=== PATIENT | male | born 1945 | race Caucasian/White ===

== ENCOUNTER → 2020-05-01 10:23 | Outpatient (BNVA) | payer MEDICARE, SELFPAY | PROVIDERS: Visit Provider Family Medicine | DX: E11.9 Type 2 diabetes mellitus without complications (principal); E11.620 Type 2 diabetes mellitus with diabetic dermatitis; G62.9 Polyneuropathy, unspecified; I10 Essential (primary) hypertension; Z83.3 Family history of diabetes mellitus; Q24.9 Congenital malformation of heart, unspecified | CPT/HCPCS: 36416; 80053; 80061; 82962; 83036; 83735; 83880; 84100; 85025 ==

== ENCOUNTER → 2020-05-16 07:42 | Outpatient (BNVA) | payer MEDICARE, SELFPAY | PROVIDERS: Visit Provider Specialist | DX: M79.661 Pain in right lower leg; M79.662 Pain in left lower leg; G62.89 Other specified polyneuropathies; Z87.891 Personal history of nicotine dependence | CPT/HCPCS: 95909 ==

== ENCOUNTER → 2020-05-17 10:59 | Outpatient (BNVA) | payer MEDICARE, SELFPAY | PROVIDERS: Visit Provider Family Medicine | DX: G62.89 Other specified polyneuropathies (principal); H61.23 Impacted cerumen, bilateral; R94.6 Abnormal results of thyroid function studies; Z68.34 Body mass index [BMI] 34.0-34.9, adult; F17.211 Nicotine dependence, cigarettes, in remission | CPT/HCPCS: 82607; 82746; 84155; 84165; 84443; 85651; 86140 ==

== ENCOUNTER 2020-05-18 11:17 | Outpatient (CLI) | payer MEDICARE, SELFPAY ==
--- NOTE | 2020-05-18 11:28 | XR_ITS ---
WS: [id number] Left foot, 3 views, 05/18/2020 Clinical Data: BILAT FOOT PAIN Comparison: None. Findings: No fractures or dislocations are seen. No bone destruction or erosion is noted. There is osteoarthrit is of the articulation between the left first metatarsal and the left first proximal phalanx.There is a plantar spur. 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
--- NOTE | 2020-05-18 11:28 | XR_ITS ---
WS: [id number] Right foot, 3 views, 05/18/2020 Clinical Data: BILAT FOOT PAIN Comparison: None. Findings: No fractures or dislocations are seen. No bone destruction or erosion is noted. There is a small buni on at the head of the right first metatarsal. There is a plantar spur. XR/XR foot RT min 3V* 50033 Impression: Bunion at the head of the right first metatarsal.
== END 2020-05-18 11:18 | disposition home or self-care (01) ==
LOC: RADWPI 11:25
PROVIDERS: Visit Provider Family Medicine
DX: M19.072 Primary osteoarthritis, left ankle and foot (principal); M21.611 Bunion of right foot
CPT/HCPCS: 73630

== ENCOUNTER 2020-05-22 14:58 | Outpatient (CLI) | payer MEDICARE, SELFPAY ==
--- NOTE | 2020-05-22 15:00 | USCV_ITS ---
HANDLEY MARSHA Age: 74 Gender: M : 1945 Exam Date: 05/22/2020 14:50 Ordering Phys: Haile Reyes MD Technologist: [place] [facility] [place]: PAD RIGHT LEFT Brachial 158.00 mmHg Brachial 156.00 mmHg Pressure (mmHg) Waveform Pressure (mmHg) Waveform 146.00 FIXED WING PILOT 164.00 151.00 DPA 144.00 0.96 Ankle/Brachial Index 1.00 155.00 Pre-Exercise Toe Pressure 147.00 0.98 Pre-Exercise Toe/Brachial Index 0.93 FINDINGS Normal resting ABIs bilaterally Normal resting TBIs bilaterally CONCLUSIONS No significant arterial obstruction, based on the above findings Dr Seda Portillo MD [facility] (Electronically Signed) Final Date: 23 May 2020 08:48 S
== END 2020-05-22 14:59 | disposition home or self-care (01) ==
PROVIDERS: Visit Provider Family Medicine
DX: M79.605 Pain in left leg (principal); M79.604 Pain in right leg; I73.9 Peripheral vascular disease, unspecified
CPT/HCPCS: 93922